=== PATIENT | female | born 2000 | race Caucasian/White ===

== ENCOUNTER 2023-04-09 14:26 | Emergency (ER) | payer OTHER, SELFPAY ==
[2023-04-09 14:41] VITALS: BP 103/80; PULSE 84; RESP 20; TEMP 36.8; O2SAT 100
--- NOTE | 2023-04-09 15:13 | ED.SKABFB ---
HPI - Skin/Abscess/Foreign Bdy General Chief complaint: Skin/Abscess/Foreign Body Stated complaint: Rash Time Seen by Provider: 04/09/23 15:04 Source: patient and RN notes reviewed Mode of arrival: ambulatory Limitations: no limitations History of Present Illness HPI narrative: Patient presents today complaining of some painful bumps to her vulva x2 days. She had use some tweezers to pluck some ingrown hairs after shaving, then used a product to get rid of shaving bumps. After she use this product she had several blisters filled with clear fluid. She had been using some mupirocin ointment, but had run out. She has no concerns for herpes. Related Data Home Medications Medication Instructions Recorded Confirmed levothyroxine 100 mcg tablet 100 mcg PO DAILY 04/09/23 04/09/23 Allergies Allergy/AdvReac Type Severity Reaction Status Date / Time Sulfa (Sulfonamide Allergy Rash Verified 04/09/23 14:38 Antibiotics) Review of Systems Review of Systems: CONSTITUTIONAL: Denies body aches, fever, chills, or sweats. EYES: Denies visual changes, redness, or discharge. ENT: Denies rhinorrhea, congestion, sore throat, or otalgia. CARDIOVASCULAR: Denies chest pain, palpitations, or edema. RESPIRATORY: Denies cough or dyspnea. GASTROINTESTINAL: Denies abdominal pain, nausea, vomiting, or diarrhea. GENITOURINARY: Denies dysuria or hematuria. SKIN: +blisters to vulva MUSCULOSKELETAL: Denies back pain, joint pain, or myalgia. NEUROLOGIC: Denies headache, numbness, tingling, or weakness. PSYCH: Denies depression or anxiety. PMFSH Comments At time of signature, I have reviewed and agree with nursing past medical, surgical, social and family history unless otherwise noted. Please see nursing chart for further information. There is no relevant family history pertinent to the presenting complaint Exam Narrative: GENERAL: Well-appearing, well-nourished, and in no acute distress. HEAD: Normocephalic, atraumatic. EYES: EOMI. No redness or drainage. Conjunctivae normal. ENT: Mucous membranes pink and moist. NECK: Normal AROM. CHEST: No respiratory distress. EXTREMITIES: Normal range of motion. No edema. SKIN: Warm, dry. Capillary refill normal. Normal skin turgor. Tiny scattered blisters to the vulva with scant erythema at the base of the hair. No induration noted. NEURO: No focal deficits. Alert and oriented x3. Gait steady. PSYCH: Normal affect. No signs of depression or anxiety. Course Course Level of Care: Express Care Visit Vital Signs Vital signs: Vital Signs Temperature 98.2 F 04/09/23 14:41 Pulse Rate 84 04/09/23 14:41 Respiratory Rate 20 04/09/23 14:41 Blood Pressure 103/80 04/09/23 14:41 Pulse Oximetry 100 04/09/23 14:41 Oxygen Delivery Room Air 04/09/23 14:41 Temperature 98.2 F 04/09/23 14:41 Pulse Rate 84 04/09/23 14:41 Respiratory Rate 20 04/09/23 14:41 Blood Pressure 103/80 04/09/23 14:41 Pulse Oximetry 100 04/09/23 14:41 Oxygen Delivery Room Air 04/09/23 14:41 Reviewed MDM - Skin/Abscess/Foreign Bdy MDM Narrative Medical decision making narrative: Lesions appear to be folliculitis. Will treat with mupirocin. These lesions are not severe enough to need oral antibiotics. Patient declines herpes swab. Anticipatory guidance given. Differential Diagnosis Differential diagnosis: Likely abscess of skin or subcutaneous tissue, dermatophytosis, cellulitis, impetigo, contact dermatitis and other (Herpes simplex, folliculitis) Critical Care Time Critical Care Time Critical Care Time: No Discharge Plan Discharge Clinical Impression: Folliculitis Patient Disposition: Home, Self-Care Condition: Stable Instructions: Folliculitis (ED) Additional Instructions: Please apply the mupirocin ointment as directed. Wash with soap and water daily. Do not shave again until fully healed, then use a brand new razor. Follow-up with your PCP in
== END 2023-04-09 15:22 | disposition home or self-care (01) ==
PROVIDERS: Emergency Provider Nurse Practitioner
DX: L73.9 Follicular disorder, unspecified (principal); E03.9 Hypothyroidism, unspecified
CPT/HCPCS: 99213; G0463

== ENCOUNTER 2023-09-20 12:56 | Outpatient (CLI) | payer OTHER, SELFPAY | END 2023-09-20 12:57 | disposition home or self-care (01) | LOC: ANHGOSHLAB 12:58 | DX: Z00.00 Encounter for general adult medical examination without abnormal findings (principal) | CPT/HCPCS: 36415; 86480 ==

== ENCOUNTER 2023-10-01 13:12 | Outpatient (CLI) | payer OTHER, SELFPAY ==
[2023-10-06 11:13] LABS: NIL 0.02 IU/mL; Quantiferon TB Plus, 1T NEGATIVE (NEGATIVE)
== END 2023-10-01 13:13 | disposition home or self-care (01) ==
LOC: ANHGOSHLAB 13:13
DX: Z00.00 Encounter for general adult medical examination without abnormal findings (principal)
CPT/HCPCS: 36415; 86480

== ENCOUNTER 2023-12-05 13:14 | Emergency (ER) | payer OTHER, SELFPAY ==
--- NOTE | 2023-12-05 13:20 | ED.URI ---
HPI - URI/Sore Throat General Chief Complaint: Upper Respiratory Infection Stated Complaint: sore throat Time Seen by Provider: 12/05/23 13:29 Source: patient and RN notes reviewed Mode of arrival: ambulatory Limitations: no limitations History of Present Illness HPI Narrative: 23-year-old female presents with concern for 2 day history of sore throat, runny nose. She reports chronic the nose and stuffy nose. She reports history of strep MD elicited complaint: sore throat and nasal congestion Related Data Home Medications Medication Instructions Recorded Confirmed levothyroxine 100 mcg tablet 100 mcg PO DAILY 04/09/23 12/05/23 levonorgestrel-ethinyl estradiol tablet 12/05/23 12/05/23 0.1 mg-20 mcg tablet (Vienva) Allergies Allergy/AdvReac Type Severity Reaction Status Date / Time Sulfa (Sulfonamide Allergy Rash Verified 12/05/23 13:21 Antibiotics) Review of Systems Review of Systems: CONSTITUTIONAL: Denies malaise, chills, sweats, or fever. EYES: Denies visual changes, redness, or discharge. ENT: Reports rhinorrhea, congestion, otalgia and sore throat. CARDIOVASCULAR: Denies chest pain, palpitations, or edema. RESPIRATORY: Reports cough. Denies dyspnea. GASTROINTESTINAL: Denies abdominal pain, nausea, vomiting, diarrhea SKIN: Denies rash or itching. MUSCULOSKELETAL: Denies myalgia. NEUROLOGIC: Denies headache. All systems reviewed & are unremarkable except as noted in HPI and below PMFSH Comments At time of signature, agree with nursing past medical, surgical, social and family history. There is no relevant family history pertinent to the presenting complaint Exam Narrative: GENERAL: Well-appearing, well-nourished, and in no acute distress. HEAD: Normocephalic EYES: PERRLA, conjunctivae clear ENT: Nares clear. Mucous membranes moist. TM pearly lr with dull light reflex bilaterally; no tragal tenderness. Oropharynx erythematous without lesions. Tonsils enlarged and without exudate, no drooling, no hoarseness, no trismus, uvula midline. NECK: Supple. No lymphadenopathy CHEST: No respiratory distress, speaks in full sentences. HEART: Regular rate and rhythm. No murmur heard. SKIN: Warm, dry, no rash. NEURO: Alert and oriented x3. PSYCH: Normal mood and affect Course Course Emergency Course: Patient is aware of diagnosis, understands and agrees to treatment plan. Anticipatory guidance given. Patient agrees to follow-up as directed and is aware of reasons to seek care at the emergency department. Portions of this record may have been created with voice recognition software Level of Care: Express Care Visit Vital Signs Vital signs: Reviewed. MDM - URI/Sore Throat MDM Narrative Medical decision making narrative: Differential diagnosis considered: Wooten virus, strep pharyngitis, allergic rhinitis, upper respiratory tract infection, sinusitis, rhinosinusitis, nasopharyngitis. viral pharyngitis, otitis media, otitis externa, pneumonia, bronchitis, viral cough syndrome, viral syndrome, and influenza. Exam findings show no acute concerns or changes; patient is non-toxic appearing and is in no distress. Patient is appropriate for outpatient treatment and follow-up. Lab Data Attestation: I reviewed the patient's lab results. Critical Care Time Critical Care Time Critical Care Time: No Discharge Plan Discharge Clinical Impression: Acute streptococcal pharyngitis Patient Disposition: Home, Self-Care Condition: Stable Instructions: Antibiotic Form, Strep Throat (ED) Additional Instructions: -Take the medication as prescribed. Throw away the toothbrush after 24hours of antibiotic. -Eat and drink things that are easy to swallow, like tea or soup, or popsicles to suck on. -Oral rinses such as: Salt water gargles and/or may use topical anesthetic (eg. Chloraseptic spray) or lozenges to relieve dryness or throat pain). -Take Tylenol and ibuprofen as needed for pain and fever as direct
[2023-12-05 13:29] VITALS: BP 113/78; PULSE 67; RESP 16; TEMP 36.8; O2SAT 100
[2023-12-05 13:36] LABS: EDSTREPNEGPOS1 Positive (Negative)
== END 2023-12-05 13:42 | disposition home or self-care (01) ==
PROVIDERS: Emergency Provider Nurse Practitioner
DX: J02.0 Streptococcal pharyngitis (principal); E03.9 Hypothyroidism, unspecified
CPT/HCPCS: 87880; 99213; G0463

== ENCOUNTER 2023-12-09 22:30 | Emergency (ER) | payer OTHER, SELFPAY ==
[2023-12-09 22:31] VITALS: BP 132/79; PULSE 73; RESP 16; TEMP 36.4; O2SAT 100
--- NOTE | 2023-12-10 00:48 | ED.DENTAL ---
HPI - Dental/Oral General Chief complaint: Dental/Oral Stated complaint: strep throat complications Time Seen by Provider: 12/10/23 00:25 Related Data Home Medications Medication Instructions Recorded Confirmed levothyroxine 100 mcg tablet 100 mcg PO DAILY 04/09/23 12/05/23 levonorgestrel-ethinyl estradiol tablet 12/05/23 12/05/23 0.1 mg-20 mcg tablet (Vienva) Allergies Allergy/AdvReac Type Severity Reaction Status Date / Time Sulfa (Sulfonamide Allergy Rash Verified 12/09/23 22:35 Antibiotics) Course Vital Signs Vital signs: Vital Signs Temperature 97.5 F L 12/09/23 22:31 Pulse Rate 73 12/09/23 22:31 Respiratory Rate 16 12/09/23 22:31 Blood Pressure 132/79 12/09/23 22:31 Pulse Oximetry 100 12/09/23 22:31 Oxygen Delivery Room Air 12/09/23 22:31 Temperature 97.5 F L 12/09/23 22:31 Pulse Rate 78 12/10/23 02:11 Respiratory Rate 15 12/10/23 02:11 Blood Pressure 122/70 12/10/23 02:11 Pulse Oximetry 100 12/10/23 02:11 Oxygen Delivery Room Air 12/09/23 22:31 MDM - Dental/Oral MDM Narrative Medical decision making narrative: This is a 23 yo female who presents to the ED for for chief complaint of sore throat with a previous diagnosis of strep throat this week. She has concern for possible mono. Vitals are normal. Exam shows erythematous, swollen, exudative pharynx, consistent with streptococcal tonsillitis. Fallon test is negative. Patient was given dexamethasone IM here. Will switch from penicillin to clindamycin as patient feels like symptoms are not improving. Patient will be discharged in stable condition. Supportive measures discussed and return precautions given. Patient is understanding and agreeable with plan for discharge with PCP follow-up. Lab Data Labs: Lab Results 12/10/23 Range/Units 01:11 Monoscreen Negative (Negative) Discharge Plan Discharge Clinical Impression: Acute tonsillitis Patient Disposition: Home, Self-Care Condition: Stable Instructions: Antibiotic Form Additional Instructions: Exam does show significant swelling to the tonsils, consistent with strep throat. Fallon test negative. Please follow-up with PCP on this issue. Make sure that your taking Tylenol and ibuprofen every 6 hours as needed for pain and fevers. Switching antibiotics from penicillin to clindamycin. If you have any new or worsening symptoms please return to the ER for further evaluation. Prescriptions: New clindamycin HCl 300 mg capsule 300 mg PO Q8H Qty: 21 0RF No Action levonorgestrel-ethinyl estrad [Vienva] 0.1-20 mg-mcg tablet penicillin V potassium 500 mg tablet 500 mg PO Q12H 10 Days Qty: 20 0RF levothyroxine 100 mcg tablet 100 mcg PO DAILY Follow-up/Referrals: PHYSICIAN,MUSIC EDUCATION ADJUNCT PROFESSOR [Primary Care Provider] - Stand Alone Forms: Work/School Release IP Time of Disposition: 01:05
[2023-12-10] MEDS: dexAMETHasone SOD PHOS INJ 10 MG/ML 1 ML VIAL IM (01:18)
[2023-12-10 02:06] LABS: Monoscreen Negative (Negative); Negative Monotest Control Negative (Negative); Positive Monotest Control Positive (Positive)
[2023-12-10 02:11] VITALS: BP 122/70; PULSE 78; RESP 15; O2SAT 100
== END 2023-12-10 02:12 | disposition home or self-care (01) ==
PROVIDERS: Emergency Provider Physician Assistant
DX: J03.00 Acute streptococcal tonsillitis, unspecified (principal)
CPT/HCPCS: 36415; 86308; 96372; 99283; J1100